=== PATIENT | female | born 1950 | race Caucasian/White ===

== ENCOUNTER 2016-11-29 12:05 | Emergency (ER) | payer MEDICARE ==
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
[~2016-11-29 12:05] MED LIST: DICLOFENAC SODIUM PO; DILANTIN PO; GAVILAX17 GM PO; LODINE PO; PHENOBARB PO; PHENOBARBITAL PO; SENNA S TABLET1 TAB PO; SYNTHROID PO; SYNTHROID125 PO; VICODIN PO
== END 2016-11-29 18:05 | disposition home or self-care (01) ==
LOC: CFTX 12:05 → CED 12:05 → CFTX 15:03
DX: S51.012A Laceration without foreign body of left elbow, initial encounter (principal); S93.402A Sprain of unspecified ligament of left ankle, initial encounter; S70.02XA Contusion of left hip, initial encounter; S50.02XA Contusion of left elbow, initial encounter; G40.909 Epilepsy, unspecified, not intractable, without status epilepticus; Z23 Encounter for immunization; Z88.1 Allergy status to other antibiotic agents; W22.8XXA Striking against or struck by other objects, initial encounter; Y92.89 Other specified places as the place of occurrence of the external cause
CPT/HCPCS: 12001; 29540; 70450; 73070; 73502; 73610; 73620; 90471; 90715; 99284